=== PATIENT | male | born 1955 | race Caucasian/White ===

== ENCOUNTER 2018-02-15 11:20 | Emergency (ER) | payer BC ==
[~2018-02-15] VITALS: Ht 177.8 cm; Wt 83.0 kg
--- NOTE | 2018-02-15 11:30 | NUR ---
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
[2018-02-15 14:06] LABS: BASOPHILS % (AUTO) 0.3 % (0.0-2.0); EOSINOPHILS % (AUTO) 0.6 % (0.0-6.0); HEMATOCRIT 37 % (39-51); HEMOGLOBIN 12.5 g/dL (13.5-17.5); LYMPHOCYTES # (AUTO) 1.7 /CMM (0.8-4.8); MEAN CORPUSCULAR HGB CONC 34 g/dl (31.0-36.0); MEAN CORPUSCULAR VOLUME 92 fL (80-96); MONOCYTES # (AUTO) 0.8 /CMM (0.1-1.30); MONOCYTES % (AUTO) 4.9 % (2.0-12.0); NEUTROPHILS % (AUTO) 84.2 % (43.0-81.0); PLATELET COUNT (AUTO) 287 /CMM (150-450); RDW COEFFICIENT OF VARIATION 13.9 (11.5-15.0); RED BLOOD CELL COUNT(AUTO) 4.01 MIL/uL (4.5-6.0); WHITE BLOOD COUNT (AUTO) 16.6 K/uL (4.3-11.0)
[2018-02-15 14:12] LABS: INR 0.95 (0.85-1.15)
[2018-02-15 14:13] LABS: CALCIUM, SERUM 8.6 mg/dL (8.5-10.1); POTASSIUM 4.2 mmol/L (3.5-5.1)
--- NOTE | 2018-02-15 15:00 | NUR ---
PT TO [facility]SCAN
[2018-02-15] MEDS ORDERED: CT SWABBABLE VALVE TRANS SET 1 EA INFUS.SET MC ONE (15:01)
[2018-02-15] MEDS ORDERED: IOHEXOL-300 100 ML VIAL IV ONE (15:01)
[2018-02-15] MEDS ORDERED: IV NS 0.9% 250 ML IV ONE (15:01)
[2018-02-15] MEDS ORDERED: LIDOCAINE HCL/PF 1% 30 ML SDV ONE (15:33)
[2018-02-15 16:55] VITALS: BP 119/75
--- NOTE | 2018-02-15 16:56 | NUR ---
Patient discharged to home in stable condition. Written and verbal after care instructions given. Patient verbalizes understanding of instruction. IV removed. Catheter intact and site benign. Pressure and 4x4 applied to site. No bleeding noted.
== END 2018-02-15 16:59 | disposition home or self-care (01) ==
LOC: ER 11:22
DX: R18.8 Other ascites (principal); Z60.2 Problems related to living alone
CPT/HCPCS: 36415; 74160; 75989 ×2; 80048; 85025; 85730; 99285; A4606; J7050; Q9967; Z7610; J3490